=== PATIENT | male | born 1960 | race Caucasian/White ===

== ENCOUNTER → 2016-07-31 | Day surgery (SDC) | payer OTHER ==
[~2016-07-31] MED LIST: ACETAMINOPHEN; ALBUTEROL17 GM INH; CLARITIN10 M3 PO; HUMALOG100 UNIT/1 SUBQ; HYDRALAZINE HCL50 MG PO; LASIX20 MG PO; LEVEMIR FL100 UNIT/1 PO; METOPROLOL TAR100 MG PO; NEURONTIN600 MG PO; NORVASC10 MG PO; PANTOPRAZOLE SO40 MG PO; PRAVASTATIN SOD40 MG PO; PRINIVIL40 MG PO; SYMBICORT80 INH; ZYLOPRIM100 MG PO
== END | disposition home or self-care (01) ==
LOC: COPS 06:59
DX: K22.70 Barrett's esophagus without dysplasia (principal); K29.70 Gastritis, unspecified, without bleeding; K44.9 Diaphragmatic hernia without obstruction or gangrene; E11.22 Type 2 diabetes mellitus with diabetic chronic kidney disease; I12.9 Hypertensive chronic kidney disease with stage 1 through stage 4 chronic kidney disease, or unspecified chronic kidney disease; N18.9 Chronic kidney disease, unspecified; E66.9 Obesity, unspecified; Z68.39 Body mass index [BMI] 39.0-39.9, adult; Z87.442 Personal history of urinary calculi; Z79.899 Other long term (current) drug therapy; Z90.49 Acquired absence of other specified parts of digestive tract; Z94.7 Corneal transplant status; Z98.41 Cataract extraction status, right eye; Z98.42 Cataract extraction status, left eye; Z98.890 Other specified postprocedural states
CPT/HCPCS: 82947; 88305; 88312

== ENCOUNTER → 2016-08-08 | Outpatient (CLI) | payer OTHER ==
--- NOTE | ~2016-08-08 | NM19 ---
[facility] A Service of [facility] RADIOLOGY TEXT RESULTS PATIENT: TEODORO AMARAL LOCATION: [facility] : 64 UNIT #: [id number] AGE: [address]: Rico Elliott MD SEX: M ORDER DR: [id number] [facility] [address] [place], [place] [address] [id number] O MR#: [id number] Acc #: [id number] NAME: TEODORO AMARAL : 1960 SEX: M STUDY DATE/TIME: 08/08/2016 7:33 UNIT: [facility] ROOM: STUDY DESCRIPTION: NC Gastric Emptying Study Attending Physician: Rico Elliott M.D. Referring Physician: Rico Elliott M.D. Ordering Physician: Rico Elliott M.D. Primary Care Physician: [facility] MEDICAL IMAGING REPORT This report is preliminary unless electronic signature is present EXAM Gastric emptying study INDICATION Gastric emptying. Abdominal bloating and vomiting for the past 6 months. PROCEDURE The patient ingested 548 mcCi technetium-labeled sulfur colloid mixed in eggs water. Imaging of the stomach performed in anterior and posterior projections for 240 minutes. COMPARISON None. FINDINGS The stomach 0% emptying at 0 minutes, 78% emptying at 60 minutes, 97% empty at 120 minutes, 98% empty at 240 minutes. IMPRESSION Normal. Dictated by... Carl Day M.D. THIS IS AN ELECTRONICALLY VERIFIED REPORT Carl Day M.D. at 08/11/2016 9:45 AM TOMD/zachary TD: 08/08/2016 16:13 JOB #: [id number] MEDICAL IMAGING REPORT Page 1 of 1 COPY
--- NOTE | ~2016-08-08 | OR ---
Unit #: [id number] #: [id number] Patient: TEODORO AMARAL [id number] [address] [address] [id number] P MR#: [id number] NAME: TEODORO AMARAL ROOM: Date of Procedure: 07/31/2016 Admission Date: 08/08/2016 Surgeon: Rico Elliott M.D. : 1960 Attending Physician: Rico Elliott M.D. OPERATIVE REPORT PROCEDURE PERFORMED Esophagogastroduodenoscopy with biopsy. INDICATIONS FOR PROCEDURE Persistent GERD symptoms, dysphagia, and epigastric pain, undergoing evaluation with upper endoscopy. MEDICATIONS Monitored anesthesia. POSTOPERATIVE FINDINGS 1. Small hiatal hernia. No esophagitis or strictures. Small [place] seen, biopsies taken. 2. Mild gastritis diffusely, biopsies taken. 3. Normal duodenum and distal duodenum. PLAN Continue PPI therapy. Consider gastric emptying scan. Reflux precautions reinforced. DESCRIPTION OF PROCEDURE The patient was explained of the procedure, risks, and benefits along with risks and benefits of anesthesia. He was brought to the endoscopy room. Propofol anesthesia was given. Bite block was placed. The scope was passed down the mouth into the esophagus, stomach, duodenum, and distal duodenum. Findings as described. Biopsies taken. Gently, the scope was pulled out. He tolerated it well. Dictated by... Zeynep Montemayor/brian TD: 08/01/2016 00:34 JOB #: [id number] Unit #: [id number] #: [id number] Patient: TEODORO AMARAL OPERATIVE REPORT Page 1 of 1 X Rico Elliott MD X PROCEDURE OPERATIVE NOTE
== END | disposition home or self-care (01) ==
LOC: CNUC 06:28
DX: R10.9 Unspecified abdominal pain (principal)
CPT/HCPCS: 78264; A9541